=== PATIENT | male | born 1980 | race Caucasian/White ===

== ENCOUNTER 2024-07-17 09:52 | Inpatient (IN) | payer MEDICAID, SELFPAY ==
[2024-07-17 09:53] VITALS: BP 122/88; PULSE 91; RESP 18; TEMP 36.5; O2SAT 92; BMI 16.2
--- NOTE | 2024-07-17 10:05 | XR_ITS ---
WS: [id number] Exam: XR chest 1V portable [id number] Date/Time of Exam: 07/17/2024 10:05 AM Reason For Exam: dyspnea/cough No priors. The lungs are clear and fully inflated. Normal cardiomediastinal silhouette. Bony structures are inta ct. XR/XR chest 1V portable [id number] IMPRESSION: 1. No acute cardiopulmonary finding.
--- NOTE | 2024-07-17 10:06 | ECG_ITS ---
[facility] Test Date: 2024-07-17 Pat Name: Anthony Couch Department: Room: Gender: Male Rag Shredder: : 1980 Requested By: Jeferson Lambert Order Number: [id number] Mateusz MD: Keyshawn Mena M.D. Measurements Intervals [place] Rate: 74 P: 79 CA: 132 QRS: 93 QRSD: 109 T: 73 QT: 383 QTc: 426 Interpretive Statements SINUS RHYTHM POSSIBLE LEFT ATRIAL ENLARGEMENT [-0.1mV P-WAVE IN V1/V2] BORDERLINE RIGHT AXIS DEVIATION [QRS AXIS > 90] SEPTAL MYOCARDIAL INFARCTION , OF INDETERMINATE AGE [40+ ms Q WAVE IN V1/V2] No previous ECG available for comparison Electronically Signed On 07-17-2024 18:17:02 CDT by Keyshawn Mena M.D. [email or web address]
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
[2024-07-17] MEDS: ziprasidone 20 mg/mL SDV 10 MG IM (10:17)
[2024-07-17] MEDS: LORazepam 2 mg/mL INJ 1 mL IM (10:18)
--- NOTE | 2024-07-17 10:21 | PC.NURSE ---
ANANTH WASTED WITH MIRANDA HARLEY.
--- NOTE | 2024-07-17 10:34 | PC.PHAR ---
Unable to establish any medications filled at local pharmacies in [place] where pt resides.
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
--- NOTE | 2024-07-17 10:37 | PC.NURSE ---
STRAIGHT CATH PERFORMED FOR URINE. PATIENT STATES I WILL MURDER ALL OF YOU.
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
[2024-07-17 10:54] LABS: Amphetamines Screen Urine Negative (Negative); Barbiturates Screen Urine Negative (Negative); Benzodiazepines Screen Urine Negative (Negative); Cocaine Screen Urine Negative (Negative); Opiate Screen Urine Negative (Negative); PCP Screen Urine Negative (Negative); THC Screen Urine Positive (Negative)
[2024-07-17 10:59] LABS: SARS Covid-2 Antigen negative (Negative)
[2024-07-17 11:02] LABS: Influenza A by IFA Negative (Negative); Influenza B by IFA Negative (Negative)
[2024-07-17 11:03] LABS: Basophils # 0.1 10^3/uL (0.0-0.1); Basophils % 1.1 %; Eosinophils # 0.1 10^3/uL (0.0-0.8); Hematocrit 46.7 % (37-53); Lymphocytes # 2.7 10^3/uL (0.8-4.8); Lymphocytes % 38.7 %; Mean Corpuscular HGB Conc 34.3 g/dL (30-55); Mean Corpuscular Hemoglobin 31.3 pg (27-33); Mean Corpuscular Volume 91.2 fl (82-101); Mean Platelet Volume 9.7 fL (7.4-10.4); Monocytes # 0.4 10^3/uL (0.2-0.9); Monocytes % 5.4 %; Neutrophils # 3.73 10^3/uL (1.8-7.7); Neutrophils % 52.7 %; Nucleated Red Blood Cells % 0 %; Platelet Count 311 10^3/cmm (157-399); Red Blood Count 5.12 10^6/uL (3.85-5.65); Red Cell Distribution Width 12.7 % (12.1-15.1); White Blood Count 7.08 10^3/uL (3.29-11.43)
--- NOTE | 2024-07-17 11:08 | PC.NURSE ---
PATIENT REMOVED FROM RESTRAINTS AT 1107 BY SECURITY.
[2024-07-17 11:21] LABS: Alanine Aminotransferase 9 U/L (0-41); Albumin Level 5.1 g/dL (3.5-5.2); Alkaline Phosphatase 72 U/L (40-130); Anion Gap 21.2 (5-19); Aspartate Amino Transferase 27 U/L (0-40); Blood Urea Nitrogen 11 mg/dL (6-20); Calcium 8.8 mg/dL (8.5-10.5); Carbon Dioxide 24 mmol/L (22-29); Chloride 103 mmol/L (98-107); Creatinine Clr Calc Pharmacy 78.6227; Globulin 2.5 g/dL (1.3-4.6); Glomerular Filtration Rate 81.2 mL/min (90-130); Glucose 97 mg/dL (65-115); Osmolality Calculated 297 mOsm/kg (285-295); Potassium 4.2 mmol/L (3.5-5.1); Sodium 144 mmol/L (136-145); Total Bilirubin 0.2 mg/dL (0.15-1.2); Total Protein 7.6 g/dL (6.6-8.7)
[2024-07-17 11:23] LABS: Acetaminophen < 5.0 ug/mL (10-30); Salicylate < 0.3 mg/dL (3-10)
[2024-07-17 11:24] LABS: Alcohol Level 307 mg/dL (0-10); Alcohol Level 308 mg/dL (0-10)
[2024-07-17 14:24] VITALS: BP 104/65; PULSE 87; RESP 17; TEMP 36.9; O2SAT 96
[2024-07-17 14:34] VITALS: BP 101/69; PULSE 71; RESP 16; TEMP 36.9; O2SAT 94
[2024-07-17 16:03] VITALS: BP 99/64; PULSE 109; RESP 18; TEMP 36.6; O2SAT 97
--- NOTE | 2024-07-17 20:15 | PC.NURSE ---
pt ref vs resp 16
[2024-07-17 23:55] VITALS: BP 106/64; PULSE 78; RESP 16; TEMP 36.8; O2SAT 96
[2024-07-18 03:55] VITALS: BP 123/75; PULSE 83; RESP 15; O2SAT 95
[2024-07-18 08:00] VITALS: RESP 15
--- NOTE | 2024-07-18 08:55 | PC.NURSE ---
PT REFUSED 0800 VITALS, RESPIRATIONS WERE OBTAINED AT 15.
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
--- NOTE | 2024-07-18 11:07 | PC.NURSE ---
This nurse attempted to assess patient's psychiatric history and substance use history that were remaining from his admission to the unit. Patient uncooperative with this nurse's questioning. Patient refused to answer any questions, stating that he is going to break the window in his room to escape, stating you going to treat me like a criminal, I'm going to act like a criminal. Patient refusing to ask any questions, clamping his eyes shut as he lays on left side in his bed.
[2024-07-18 12:00] VITALS: RESP 16
[2024-07-18] MEDS: diphenhydrAMINE 50 mg/mL SDV 1mL IM (13:13)
[2024-07-18] MEDS: haloperidol inj 5 mg/mL INJ 1 mL IM (13:13)
[2024-07-18] MEDS: LORazepam 2 mg/mL INJ 1 mL IM (13:13)
--- NOTE | 2024-07-18 13:35 | PC.NURSE ---
THIS OFFAL WORKER RESPONDED TO CODE TEN THAT WAS CALLED AT 1302 DUE TO PT HITTING WINDOW AND BLACK IN ROOM PER STAFF REPORT. SECURITY WAS ON UNIT UPON THIS RN'S ARRIVAL. PT IS HEARD MAKING THREATS TO STAFF THAT IF HE IS MADE TO TAKE THOSE THEN HE WILL MAKE SURE THAT EVERY STAFF MEMBER THAT WALKS DOWN THIS HALLWAY THEN I'M, GOING TO GET THEM. PT WAS GIVEN INJECTIONS BY STAFF THAT REQUIRED A MANUAL HOLD THAT LASTED LESS THAN 20 SECONDS. PT WAS THEN OBSERVED LAYIN DOWN IN BED WITH A BLANKET OVER HIS HEAD. SUPPORT WAS VOICED. SECURITY STAYED ON UNIT TO ENSURE STAFF SAFETY,
--- NOTE | 2024-07-18 14:05 | PC.NURSE ---
Patient observed by staff slamming his body against the doors of the unit. Patient demanding to be let out. This nurse and others attempted to educate patient on the process of 96-hour holds. Patient pacing the chang. Patient verbally aggressive with staff. This nurse called security Rolon who said that he would be on his way. Patient punched the glass surrounding the nurse station. This nurse decided to call Code 10. Code called at 1302. Security Rolon and Art, along with Engineering Vice President Marika and Bhaskar Almendarez from ER. Decision made to administer IM B52 because of patient's behaviors that were amplifying. Patient resistant to this. Patient moved quickly toward me, reaching for the medication in the syringe in my hand. Security Rolon quickly stopped the patient. Patient was moved to his bed, where 2 security guards and 2 staff held patient in place while this nurse and LIZZETTE Howe administered benadryl 50mg IM into right deltoid, and ativan 2mg and haldol 5mg IM into left deltoid. Patient did not resist staff while being held. Patient was held for approximately 20 seconds during the administration of the medications. Patient went to pacing the chang. Security pleasant. Patient told staff that we can give him shots but in 10-15 minutes after he wakes up, he will be back at it and that staff better watch your backs . Patient went on to say that he will go after staff.
--- NOTE | 2024-07-18 14:08 | PC.NURSE ---
PT REFUSED 1200 VITALS FOR THIS TEXTILE DYER, WELL SECURITY, CHARGE NURSE AND MED NURSE. RESPIRATIONS WERE OBTAINED AT 16. PT WAS ALERT AND ORIENTATED. PT STATED GET THE FUCK OUT OF MY ROOM, IF I THEN I CHARGE NURSE EDUCATED HIM ABOUT GETTING VITALS SINCE WE GAVE HIM MEDICATIONS AND PT THEN STATED IF I THEN THATS YOUR FUCKING FAULT NOT MINE, NOW GET THE FUCK OUT OF HERE
--- NOTE | 2024-07-18 14:36 | PC.NURSE ---
This nurse assessed patient approximately 55 minutes after having done a manual hold. Patient alert. Patient refusing to let staff check his VS. This nurse attempted to educate patient on the purpose of checking his VS. Patient laying in bed with blanket covering his face, not speaking to staff. Respirations observed. Respirations appear within normal limits. Security present
[2024-07-18 16:00] VITALS: RESP 16
--- NOTE | 2024-07-18 17:04 | PC.NURSE ---
This nurse attempted to obtain patient's 1600 Vital Signs. Patient refused. Patient's respirations observed--16 per minute.
--- NOTE | 2024-07-18 17:05 | PC.NURSE ---
This nurse asked to assess patient's hand for injury. Patient declined by shaking his head no. This nurse shook his head no when asked if he thought it was broken. This nurse asked if he would like an X-Ray performed to ensure that there aren't any breaks. Patient shook his head no.
[2024-07-18 19:50] VITALS: RESP 18
--- NOTE | 2024-07-18 19:50 | PC.NURSE ---
Was told by nurse to get respirations if he was sleeping.
[2024-07-19] VITALS: RESP 18
--- NOTE | 2024-07-19 00:26 | PC.NURSE ---
was told not to wake him up and only get respirations.
[2024-07-19 04:00] VITALS: RESP 18
--- NOTE | 2024-07-19 04:32 | PC.NURSE ---
Nurse had me do just respirations because patient has violent tendencies when awake.
[2024-07-19 08:00] VITALS: RESP 16
--- NOTE | 2024-07-19 09:32 | PC.NURSE ---
PT REFUSED 0800 VITALS FOR THIS OPERATIONS TEAM LEADER. RESPIRATIONS WERE OBTAINED AT 16.
[2024-07-19] MEDS: nicotine 21 mg Patch 1 PATCH TRANSDERMA (09:47)
--- NOTE | 2024-07-19 11:25 | PC.NURSE ---
Patient was irritable but willing to discuss how and what brought him to the unit. Patient stated to this nurse that he got drunk and spent the night gambling. Patient then went to work to quit because he doesn't make enough money at his job. He stated that he wanted for people to leave him alone so he said that he was going to blow his brains out. Patient said that if he had really wanted to kill himself, that he would do it and not tell people. Patient admits to two previous suicide attempts.
[2024-07-19 12:00] VITALS: BP 109/65; PULSE 70; RESP 16; O2SAT 97
--- NOTE | 2024-07-19 14:28 | PC.NURSE ---
[facility] katie called for discharging patient at 1423. Katie accepted, just waiting to hear back on when patient will be picked up.
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
[2024-07-19 15:48] VITALS: BP 109/65; PULSE 70; RESP 16; O2SAT 97
[2024-07-19] MEDS: nicotine 2 mg Gum BUCCAL (16:23)
--- NOTE | 2024-07-21 08:57 | PC.OT ---
PATIENT D/C BEFORE OT EVALUATION COULD BE COMPLETED.
== END 2024-07-19 17:16 | disposition home or self-care (01) | DRG 897 ==
LOC: ER 10:14 → NP 13:48
PROVIDERS: Physician Assistant; Admitting Provider Psychiatry & Neurology Psychiatry; Emergency Provider Family Medicine; Visit Provider Psychiatry & Neurology Psychiatry
DX: F10.14 Alcohol abuse with alcohol-induced mood disorder (principal); R45.851 Suicidal ideations; Y90.8 Blood alcohol level of 240 mg/100 ml or more; F10.129 Alcohol abuse with intoxication, unspecified
CPT/HCPCS: 36415; 71045; 80053; 80306; 80307; 85025; 87426; 87804; 93005; 96372; 99285; J1200; J1630; J2060; J3486